=== PATIENT | female | born 1995 | race Two or more races ===

== ENCOUNTER 2022-08-09 12:54 | Inpatient (IN) | payer OTHER ==
[~2022-08-09] VITALS: Ht 160 cm; Wt 75.3 kg
[2022-08-09] MEDS ORDERED: IRON325 MG PO (14:08)
[2022-08-09] MEDS ORDERED: PRENATAL TABLE1 EAC1 PO (14:08)
== END 2022-08-11 11:55 | disposition home or self-care (01) | DRG 807 ==
LOC: LDR 12:54 → OB/GYN 12:54
PROVIDERS: ADMIT Specialist; ATTEND Specialist
PROC: 10E0XZZ Delivery of Products of Conception, External Approach (ICD-10-PCS; principal; 2022-08-09)
PROC: 0HQ9XZZ Repair Perineum Skin, External Approach (ICD-10-PCS; 2022-08-09)
PROC: 4A1HXCZ Monitoring of Products of Conception, Cardiac Rate, External Approach (ICD-10-PCS; 2022-08-09)
DX: O70.1 Second degree perineal laceration during delivery (principal); Z37.0 Single live birth; Z3A.40 40 weeks gestation of pregnancy; Z20.822 Contact with and (suspected) exposure to COVID-19